=== PATIENT | male | born 2005 | race Caucasian/White ===

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

== ENCOUNTER 2024-03-28 21:35 | Emergency (ER) | payer OTHER ==
[~2024-03-28] VITALS: Ht 185.4 cm; Wt 72.6 kg
[2024-03-28 21:45] VITALS: BP 141/86
[2024-03-28] MEDS ORDERED: Ketorolac Tromethamine 15mg Vial IM ONE (22:40)
[2024-03-28] MEDS ORDERED: Amoxicillin/Clavulanate K 875 MG Tab PO ONE (22:40)
[2024-03-28] MEDS ORDERED: AMOCLA875 PO (22:42)
== END 2024-03-28 22:50 | disposition home or self-care (01) ==
LOC: ER 21:35
DX: H66.92 Otitis media, unspecified, left ear (principal); F17.210 Nicotine dependence, cigarettes, uncomplicated; Z91.048 Other nonmedicinal substance allergy status
CPT/HCPCS: 96372; 99282-25; A9270; J1885